=== PATIENT | female | born 2005 | race Caucasian/White ===

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

== ENCOUNTER 2025-02-06 22:46 | Emergency (ER) | payer MEDICAID ==
[2025-02-06] MEDS ORDERED: Sodium Chloride 0.9% 10 ML Syringe FLUSH PRN (23:26)
[2025-02-07] MEDS ORDERED: Naloxone 0.4 MG/ML SDV IVPUSH PRN
[2025-02-07 00:11] LABS: APPEARANCE,URINE CLEAR (Clear); GLUCOSE,URINE NEGATIVE (Negative); OCCULT BLOOD,URINE NEGATIVE (Negative)
[2025-02-07] MEDS: Ketorolac 30 MG/ML SDV IVPUSH ONE (00:14)
[2025-02-07] MEDS: Ondansetron 4 MG/2 ML SDV IVPUSH ONE (00:14)
[2025-02-07 00:22] LABS: BASOPHILS ABSOLUTE AUTO 0.1 K/mm3 (0.0-0.3); BASOPHILS PERCENT AUTO 0.5 % (0.0-1.0); EOSINOPHILS ABSOLUTE AUTO 0.3 K/mm3 (0.0-0.7); EOSINOPHILS PERCENT AUTO 2.7 % (0.0-5.0); IMMATURE GRAN ABSOLUTE AUTO 0.02 K/mm3 (0.00-0.05); IMMATURE GRAN PERCENT AUTO 0.2 % (0.0-0.4); LYMPHOCYTES ABSOLUTE AUTO 3.7 K/mm3 (2.0-8.8); LYMPHOCYTES PERCENT AUTO 40.4 % (50.0-65.0); MEAN PLATELET VOLUME 9.8 fl (9.4-12.3); MONOCYTES ABSOLUTE AUTO 0.7 K/mm3 (0.1-1.4); MONOCYTES PERCENT AUTO 7.5 % (2.0-10.0); NEUTROPHILS ABSOLUTE AUTO 4.5 K/mm3 (1.5-8.5); NEUTROPHILS PERCENT AUTO 48.7 % (35.0-45.0); NRBC ABSOLUTE 0.00 (0.00-0.03); NRBC PERCENT 0.0 % (0.0-0.2); PLATELET COUNT,PLT 331 K/mm3 (150-400); RED BLOOD CELL COUNT 4.27 M/mm3 (4.10-5.30); WHITE BLOOD CELL COUNT,WBC 9.19 K/mm3 (4.5-13.5)
[2025-02-07 00:34] LABS: A/G RATIO 1.2 (1-2); ALANINE AMINOTRANSFERASE,ALT 38.0 U/L (14-59); ASPARTATE AMNIOTRANSFERASE,AST 20.0 U/L (15-37); BILIRUBIN TOTAL 0.4 mg/dL (0.2-1.0); BLOOD UREA NITROGEN,BUN 19.0 mg/dL (7-18); CARBON DIOXIDE,CO2 27.0 mEq/L (21-32); CHLORIDE,CL 106.0 mEq/L (98-107); CREATININE 0.7 mg/dL (0.55-1.02); EST CRCL DRUG DOSING (CG) 139.79 mL/min; ESTIMATED GFR 128.0 mL/min (>60); GLUCOSE RANDOM 92.0 mg/dL (70-99); POTASSIUM,K 4.0 mEq/L (3.5-5.1); PROTEIN TOTAL,TP 6.4 g/dl (6.4-8.2); SODIUM,NA 141.0 mEq/L (136-145)
[2025-02-07 00:37] LABS: LACTIC ACID 0.6 mmol/L (0.4-2.0)
[2025-02-07] MEDS: Ketorolac 60 MG/2 ML SDV IM ONE (01:13)
[2025-02-07 03:07] VITALS: BP 119/65; PULSE 69
== END 2025-02-07 02:27 | disposition home or self-care (01) ==
LOC: JD.ED 22:46
DX: R10.2 Pelvic and perineal pain (principal); I48.91 Unspecified atrial fibrillation; E11.9 Type 2 diabetes mellitus without complications; E66.9 Obesity, unspecified; J45.909 Unspecified asthma, uncomplicated; Z79.899 Other long term (current) drug therapy; Z79.51 Long term (current) use of inhaled steroids; Z88.1 Allergy status to other antibiotic agents; Z88.8 Allergy status to other drugs, medicaments and biological substances; Z90.49 Acquired absence of other specified parts of digestive tract; Z68.28 Body mass index [BMI] 28.0-28.9, adult
CPT/HCPCS: 36415; 80053; 81003; 83605; 83735; 84703; 85025; 96374; 96375; 99284; A9270; J1885; J2405

== ENCOUNTER 2025-04-15 08:04 | Emergency (ER) | payer MEDICAID ==
[2025-04-15] MEDS: Acetaminophen/HYDROcodone 325-5 MG Tab PO ONE (08:43)
[2025-04-15] MEDS: Ketorolac 60 MG/2 ML SDV IM ONE (08:44)
[2025-04-15 09:57] VITALS: BP 116/82; PULSE 68
== END 2025-04-15 09:20 | disposition home or self-care (01) ==
LOC: JD.ED 08:04
DX: M94.0 Chondrocostal junction syndrome [Tietze] (principal); R07.89 Other chest pain; I48.91 Unspecified atrial fibrillation; E11.9 Type 2 diabetes mellitus without complications; Z88.0 Allergy status to penicillin; Z88.8 Allergy status to other drugs, medicaments and biological substances; Z79.899 Other long term (current) drug therapy
CPT/HCPCS: 71045; 71045-26; 93005; 96372; 99285; A9270-GY; J1885